=== PATIENT | female | born 1990 | race Caucasian/White ===

== ENCOUNTER 2020-05-16 19:58 | Emergency (ER) | payer BC, SELFPAY ==
[2020-05-16 19:59] VITALS: BP 126/83; PULSE 100; RESP 15; TEMP 36.3; O2SAT 99; BMI 31.2
--- NOTE | 2020-05-16 20:31 | ED.VIS.GEN ---
History of Present Illness Chief Complaint: Dental Informant: Patient Onset: Days Context: Gradual Onset Current Severity: Moderate Maximum Severity: Severe Narrative: Patient presents secondary to right-sided dental pain. She was seen by dentist yesterday. She was told she had a cavity between 2 teeth and an ulceration. She was started on amoxicillin and ibuprofen. Patient states today she feels like the right side of her face is swelling and going down into her neck. She reports having a bad infection in the past and wanted to avoid that. She has not noted chills but felt like she may be running a fever earlier. She has not had problems tolerating secretions. Past Medical History - Allergies and Home Meds Allergies/Adverse Reactions: Allergies No Known Allergies Allergy (Verified 05/16/20 20:03) Past Medical History: None Review of Systems General: Reports: Fever, Subjective Eyes: Denies: Visual changes - bilaterally ENT: Reports: Right ear pain, - - Right-sided dental pain Cardiovascular: Denies: Chest pain, Palpitations Respiratory: Denies: Dyspnea, Cough Gastrointestinal: Denies: Abdominal pain, Nausea, Vomiting, Diarrhea Genitourinary: Denies: Dysuria Musculoskeletal: Denies: Swelling, Extremity Pain Skin: Denies: Rash Neurological: Denies: Headache Hematologic: Denies: Easy bruising, Easy bleeding Allergy: Denies: Uticaria Physical Exam Vital Signs/Narrative: Vital Signs Temp Pulse Resp BP Pulse Ox 05/16/20 19:59 97.4 F L 100 15 126/83 H 99 Inital Vital Signs reviewed: Yes General: Well nourished, Well developed Head: Normocephalic, Atraumatic Eyes: Perrl, EOMI ENT: TM's clear, - - Tenderness along the right maxillary first and second premolars. Minimal gum edema. Posterior pharynx examination is unremarkable. Head of bed is elevated approximate 50 degrees and she is tolerating this without difficulty. She is a strong voice. No obvious facial edema or erythema is noted. Neck: - - Mild bilateral anterior cervical lymphadenopathy. No sign of Sobeida's angina on exam. Cardiovascular: Regular rate, Regular rhythm Respiratory: No distress, CTA bilaterally Abdomen: Soft, Nontender Extremities: Nontender Skin: Normal color Neurological: Alert, Oriented x3 Psychological: Normal affect Diagnostic/Tx/Re-eval - Medical Decision Making Antibiotics to be switched to clindamycin and should be given a few [place] for breakthrough pain. We discussed Sobeida's angina and what she should watch for. She is encouraged to return for worsening symptoms. ED Disposition - Plan for ED Patient: Disposition: Home or Assisted Living Diagnosis: Odontalgia Instructions: ED Tooth Pain Prescriptions: Clindamycin [Cleocin] 300 mg PO 4X/DAY #80 cap Transmission Status: Pending to [id number] Hydrocodone Bitart/Apap 5-325 [[place] 5MG-325MG] 1 tablet PO Q6H PRN PRN 3 Days #6 tablet PRN Reason: Pain Transmission Status: Received by [id number]
[2020-05-16] MEDS: HYDROcodone Bitartrate/Apap 5/325 Tablet PO (20:41)
[2020-05-16] MEDS: Clindamycin HCl 150 MG Capsule 300 MG PO (20:42)
[2020-05-16 21:05] VITALS: RESP 14
== END 2020-05-16 21:05 | disposition home or self-care (01) ==
LOC: ED 20:52
PROVIDERS: Emergency Provider Emergency Medicine
DX: K08.89 Other specified disorders of teeth and supporting structures (principal)
CPT/HCPCS: 99283

== ENCOUNTER → 2022-09-12 | Outpatient (CLI) | payer OTHER, SELFPAY ==
[2022-09-12 10:39] LABS: Vitamin D,25 Hydroxy 30.9 ng/mL
[2022-09-12 10:44] LABS: Anion Gap 6 (5-15); BUN 7 mg/dL (7-18); BUN/Creat Ratio 11.8 RATIO (10-20); Calcium,Total 9.1 mg/dL (8.5-10.1); Chloride 106 mmol/L (98-107); Cholesterol 175 mg/dL (200); Creatinine, Serum 0.59 mg/dL (0.55-1.02); EST Glomerular Filtration Rate 126 mL/min (>60); Est Glom Filt Rate - Afr Amer 153 mL/min (>60); Free T3 3.1 pg/mL (2.18-3.98); Glucose 84 mg/dL (74-106); High Density Lipoprotein 72 mg/dL; Potassium 3.8 mmol/L (3.5-5.1); Sodium Level 139 mmol/L (136-145); T4 Free Direct 0.97 ng/dL (0.76-1.46); Thyroid Stim Hormone (TSH) 0.74 uIU/mL (0.358-3.74); Triglycerides 116 mg/dL; Very Low Density Lipoprotein 23 mg/dL (5-40)
== END | disposition home or self-care (01) ==
LOC: MFPLAB 09:02
PROVIDERS: Visit Provider Family Medicine
DX: Z00.00 Encounter for general adult medical examination without abnormal findings (principal); L65.9 Nonscarring hair loss, unspecified
CPT/HCPCS: 36415; 80048; 80061; 82306; 84439; 84443; 84481

== ENCOUNTER → 2023-06-28 | Outpatient (CLI) | payer OTHER, SELFPAY ==
[2023-06-28 15:10] LABS: Absolute Lymphocyte Count 2.28 X10^3/uL (0.83-4.51); Absolute Neutrophil Count 4.1 X10^3/uL (2.0-7.7); Basophil# 0.03 X10^3/uL; Basophil% 0.4 % (0-1); Eosinophil# 0.03 X10^3/uL; Eosinophils% 0.4 % (0-5); Hematocrit 39.3 % (37-47); Lymphocyte # 2.28 X10^3/ul (0.83-4.51); Lymphocyte % 32.7 % (19-41); Mean Corp Hgb Conc 33.1 g/dL (32-36); Mean Corpuscular Hgb 32.2 pg (27.0-32.0); Mean Corpuscular Volume 97.3 fL (81-99); Mean Platelet Vol. 9.9 fl (6.2-12.0); Monocyte# 0.51 X10^3/uL; Monocyte% 7.3 % (0-10); NRBC Flagged by Analyzer 0 % (0-5); Neutrophil % 58.9 % (47-70); Platelet Count 365 K/mm3 (150-450); RBC Distribution Width CV 12.2 % (11.6-14.6); RBC Distribution Width SD 44.2 fl (35.1-43.9); Red Blood Count 4.04 M/mm3 (4.2-5.4)
[2023-06-28 15:39] LABS: Vitamin B12 346 pg/mL (211-911); Vitamin D,25 Hydroxy 32.3 ng/mL
[2023-06-28 15:49] LABS: AST(SGOT) 14 U/L (15-37); Alanine Aminotransfer ALT/SGPT 20 U/L (13-56); Albumin, Serum 3.8 g/dL (3.2-5.0); Alkaline Phosphatase 77 U/L (45-117); Anion Gap 8 (5-15); BUN 7 mg/dL (7-18); BUN/Creat Ratio 10.9 RATIO (10-20); Calcium,Total 9.1 mg/dL (8.5-10.1); Chloride 105 mmol/L (98-107); Creatinine, Serum 0.64 mg/dL (0.55-1.02); EST Glomerular Filtration Rate 114 mL/min (>60); Est Glom Filt Rate - Afr Amer 138 mL/min (>60); Free T3 2.7 pg/mL (2.18-3.98); Globulin 3.9 g/dL (2.2-4.2); Glucose 84 mg/dL (74-106); Potassium 3.5 mmol/L (3.5-5.1); Protein, Total 7.7 g/dL (6.4-8.2); Sodium Level 138 mmol/L (136-145); T4 Free Direct 1.03 ng/dL (0.76-1.46); Thyroid Stim Hormone (TSH) 1.63 uIU/mL (0.358-3.74)
[2023-07-08 21:07] LABS: Anti-Thyroglobulin AB 4.5 IU/mL (0.0-0.9); Thyroglobulin RIA 33 ng/mL (.); Thyroid Peroxidase AB 262 IU/mL (0-34)
== END | disposition home or self-care (01) ==
PROVIDERS: PCP Family Medicine; Referring Provider Family Medicine; Visit Provider Family Medicine
DX: R53.83 Other fatigue (principal)
CPT/HCPCS: 36415; 80053; 82306; 82607; 83735; 84432; 84439; 84443; 84481; 85025; 86376; 86800

== ENCOUNTER → 2023-07-05 | Outpatient (CLI) | payer OTHER, SELFPAY ==
--- NOTE | 2023-07-05 13:56 | ECHOCS_ITS ---
Reason For Study: Palpitations Procedure This was a 2D Doppler, Color Flow transthoracic echocardiogram. Contrast injection was performed. Exam performed in department. Left Ventricle Normal left ventricle. The estimated ejection fraction is 55-60 %. Right Ventricle Normal right ventricle. Normal systolic function. Atria Normal left atrium. Normal right atrium. Mitral Valve The mitral valve is structurally normal. No prolapse or stenosis seen. Trivial mitral valve insufficiency. Tricuspid Valve Normal tricuspid valve. Trivial tricuspid valve insufficiency. Aortic Valve Trisinus/trileaflet aortic valve. Pulmonic Valve The pulmonic valve is not well visualized. Great Vessels Normal aortic root. Pericardium/Pleural No pericardial effusion. Medication Diluted definity 2ml given slow IV push to enhance endocardial definition. MMode/2D Measurements & Calculations LVIDd: 4.3 cm IVSd: 0.91 cm Ao root diam: 3.0 cm LVIDs: 2.9 cm LVPWd: 0.94 cm RVDd: 3.6 cm FS: 33.9 % LAV(MOD-bp): 32.6 ml LVAd ap4: 31.1 cm2 SV(MOD-sp4): 57.2 ml LAV(MOD-bp) Indexed: 17.0 ml/m2 LVLd ap4: 7.7 cm LAV(MOD-sp2): 34.6 ml EDV(MOD-sp4): 103.5 ml LAV(MOD-sp4): 28.0 ml EDV(sp4-el): 106.3 ml LVAs ap4: 19.0 cm2 LVLs ap4: 6.5 cm ESV(MOD-sp4): 46.3 ml ESV(sp4-el): 47.0 ml EF(MOD-sp4): 55.3 % EF(sp4-el): 55.8 % SV(sp4-el): 59.3 ml LA A4 area: 13.7 cm2 LA dimension(2D): 3.3 cm RA A4 area: 9.9 cm2 TAPSE: 2.3 cm Time Measurements MV dec time: 0.19 sec Doppler Measurements & Calculations MV E max willie: 83.1 cm/sec Lat Peak E' Willie: 17.3 cm/sec Med Peak E' Willie: 8.3 cm/sec MV A max willie: 50.8 cm/sec E/E' lat: 4.8 E/E' med: 10.0 MV E/A: 1.6 MV dec slope: 445.6 cm/sec2 Ao V2 max: 147.1 cm/sec LV V1 max: 126.5 cm/sec Ao max P.7 mmHg LV V1 max P.4 mmHg Ao V2 mean: 103.8 cm/sec LV V1 mean P.9 mmHg Ao mean P.9 mmHg LV V1 mean: 96.2 cm/sec Ao V2 VTI: 31.1 cm LV V1 VTI: 26.4 cm AV (velocity ratio): 0.85 PA V2 max: 111.8 cm/sec TR max willie: 212.5 cm/sec TR max P.1 mmHg ECHO/Echo Complete W/ Contrast Interpretation Summary Normal LV systolic function. The estimated ejection fraction is 55-60 %. Trivial MR Trivial TR No prior echo study to compare. Ordering Physician: Sally Benson Referring Physician: Sally Benson Performed By: Vivian Musa, BAHMAN, RVT
== END | disposition home or self-care (01) ==
LOC: CVS 13:55
PROVIDERS: PCP Family Medicine; Referring Provider Family Medicine; Visit Provider Family Medicine
DX: R00.2 Palpitations (principal)
CPT/HCPCS: 93306; Q9957; A4216; C8929

== ENCOUNTER → 2023-08-15 | Outpatient (CLI) | payer OTHER, SELFPAY ==
[2023-08-15 15:43] LABS: Erythrocyte Sedimentation Rate 16 mm/hr (0-30)
[2023-08-15 16:57] LABS: CRP 9.39 mg/L (0.0-3.0); Rheumatoid Factor < 10.0 IU/mL (<15); T4 Free Direct 1.16 ng/dL (0.76-1.46); Thyroid Stim Hormone (TSH) 1.48 uIU/mL (0.358-3.74)
[2023-08-17 12:09] LABS: ANTINUCLEAR ANTIBODIES DIRECT Negative (Negative)
== END | disposition home or self-care (01) ==
LOC: MFPLAB 11:20
PROVIDERS: PCP Family Medicine; Visit Provider Family Medicine
DX: R53.83 Other fatigue (principal)
CPT/HCPCS: 36415; 82533; 84439; 84443; 84481; 85652; 86038; 86140; 86431

== ENCOUNTER → 2023-09-14 | Outpatient (CLI) | payer OTHER, SELFPAY ==
[2023-09-14 10:32] LABS: Vitamin B12 401 pg/mL (211-911); Vitamin D,25 Hydroxy 28.7 ng/mL
[2023-09-14 10:45] LABS: CRP < 2.90 mg/L (0.0-3.0); Ferritin 58 ng/mL (8-252); T4 Free Direct 0.95 ng/dL (0.76-1.46); Thyroid Stim Hormone (TSH) 2.29 uIU/mL (0.358-3.74)
== END | disposition home or self-care (01) ==
LOC: LAB 09:35
PROVIDERS: PCP Family Medicine; Referring Provider Family Medicine; Visit Provider Family Medicine
DX: R53.83 Other fatigue (principal); E53.8 Deficiency of other specified B group vitamins; E06.3 Autoimmune thyroiditis; R23.2 Flushing; R79.82 Elevated C-reactive protein (CRP)
CPT/HCPCS: 36415; 82306; 82607; 82728; 84439; 84443; 86140

== ENCOUNTER → 2023-09-20 | Outpatient (CLI) | payer OTHER, SELFPAY ==
--- NOTE | 2023-09-20 12:37 | US_ITS ---
STUDY: THYROID ULTRASOUND REASON FOR EXAM: Female, 33 years old. Autoimmune thyroid issues wtih fatigue, flushing, etc -- thyroiditis TECHNIQUE: Ultrasound evaluation of the thyroid was performed with real-time and static choi-scale imaging. COMPARISON: None. FINDINGS: RIGHT LOBE: The right lobe of the thyroid gland is enlarged measures 5.8 cm x 2.1 cm x 1.8 cm. There is a heterogeneous echotexture. There are no demonstrated solid, cystic or complex lesions. LEFT LOBE: The left lobe of the thyroid gland is enlarged and measures 5.3 cm x 1.9 cm x 1.8 cm. There is a heterogeneous echotexture. There are no demonstrated solid, cystic or complex lesions. ISTHMUS: The isthmus measures 4 mm. The regional lymph nodes are normal. US/Thyroid IMPRESSION: Thyroid enlargement. Electronically Signed: Sean Spangler MD at 15:18 EDT ,
== END | disposition home or self-care (01) ==
LOC: US 12:36
PROVIDERS: PCP Family Medicine; Referring Provider Family Medicine; Visit Provider Family Medicine
DX: E06.3 Autoimmune thyroiditis (principal)
CPT/HCPCS: 76536

== ENCOUNTER → 2025-01-30 | Outpatient (CLI) | payer OTHER, SELFPAY | END | disposition home or self-care (01) | LOC: MFPLAB 10:49 | PROVIDERS: PCP Family Medicine | DX: E06.3 Autoimmune thyroiditis (principal) | CPT/HCPCS: 36415; 83036; 84439; 84443 ==

== ENCOUNTER → 2025-02-13 | Outpatient (CLI) | payer OTHER, SELFPAY ==
[2025-02-13 12:40] LABS: Absolute Lymphocyte Count 1.73 X10^3/uL (0.83-4.51); Absolute Neutrophil Count 3.6 X10^3/uL (2.0-7.7); Basophil# 0.03 X10^3/uL; Basophil% 0.5 % (0-1); Eosinophil# 0.03 X10^3/uL; Eosinophils% 0.5 % (0-5); Hematocrit 38.1 % (37-47); Hemoglobin 12.7 g/dL (12.0-15.0); Lymphocyte # 1.73 X10^3/ul (0.83-4.51); Lymphocyte % 29.4 % (19-41); Mean Corp Hgb Conc 33.3 g/dL (32-36); Mean Corpuscular Hgb 32.2 pg (27.0-32.0); Mean Corpuscular Volume 96.7 fL (81-99); Monocyte# 0.48 X10^3/uL; Monocyte% 8.1 % (0-10); NRBC Flagged by Analyzer 0 % (0-5); Neutrophil # 3.61 X10^3/uL (2.7-7.7); Neutrophil % 61.3 % (47-70); Platelet Count 367 K/mm3 (150-450); RBC Distribution Width CV 12.3 % (11.6-14.6); RBC Distribution Width SD 43.9 fl (35.1-43.9); Red Blood Count 3.94 M/mm3 (4.2-5.4); White Blood Count 5.9 K/mm3 (4.4-11.0)
[2025-02-13 19:54] LABS: ALB/GLOB Ratio 1.3 RATIO (0.9-2.4); AST(SGOT) 16 U/L (<=31); Alanine Aminotransfer ALT/SGPT 12 U/L (<=34); Alkaline Phosphatase 76 U/L (35-104); Anion Gap 12 (5-15); BUN 7 mg/dL (4-19); BUN/Creat Ratio 11.3 RATIO (10-20); Carbon Dioxide 20.4 mmol/L (21.0-32.0); Chloride 105 mmol/L (98-108); Creatinine, Serum 0.62 mg/dL (0.70-1.20); EST Glomerular Filtration Rate 121 (>60); Globulin 3.1 g/dL (2.2-4.2); Glucose 75 mg/dL (70-99); Sodium Level 137 mmol/L (133-145); Total Bilirubin 0.46 mg/dL (0.00-1.30)
[2025-02-13 20:20] LABS: Cholesterol 164 mg/dL (<=200); High Density Lipoprotein 73 mg/dL; Low Density Lipoprotein Calc. 79 mg/dL; Triglycerides 62 mg/dL; Very Low Density Lipoprotein 12 mg/dL (5-40); cholesterol:hdl ratio screen 2.26
[2025-02-13 20:23] LABS: CRP < 3.00 mg/L (0.0-3.0); Vitamin B12 379 pg/mL (180-914); Vitamin D,25 Hydroxy 14.8 ng/mL (30-100)
[2025-02-18 14:08] LABS: Estrogen, Total, Serum 126 pg/mL (.)
== END | disposition home or self-care (01) ==
LOC: MFPLAB 10:24
PROVIDERS: PCP Family Medicine; Referring Provider Family Medicine; Visit Provider Family Medicine
DX: Z00.00 Encounter for general adult medical examination without abnormal findings (principal); E06.3 Autoimmune thyroiditis; R79.89 Other specified abnormal findings of blood chemistry; Z13.220 Encounter for screening for lipoid disorders; N92.6 Irregular menstruation, unspecified; R53.83 Other fatigue
CPT/HCPCS: 36415; 80053; 80061; 82306; 82533; 82607; 82672; 84439; 84443; 85025; 86140; 86900; 86901

== ENCOUNTER → 2025-03-13 | Outpatient (CLI) | payer OTHER, SELFPAY ==
[2025-03-13 13:00] LABS: Hemoglobin A1c 4.9 % (<=5.6)
[2025-03-13 13:12] LABS: Estradiol 41.5 pg/mL
[2025-03-14 04:07] LABS: PROGESTERONE 1.2 ng/mL (.)
[2025-03-15 17:07] LABS: PROLACTIN 18.1 ng/mL (4.8-33.4); Testosterone Free 1.1 pg/mL (0.0-4.2)
[2025-03-17 16:08] LABS: HPV APTIMA, High Risk Negative (Negative)
== END | disposition home or self-care (01) ==
PROVIDERS: PCP Family Medicine; Referring Provider Nurse Practitioner Women's Health; Visit Provider Nurse Practitioner Women's Health
DX: L68.0 Hirsutism (principal); L70.9 Acne, unspecified; E66.9 Obesity, unspecified; N94.6 Dysmenorrhea, unspecified; N93.9 Abnormal uterine and vaginal bleeding, unspecified; Z12.4 Encounter for screening for malignant neoplasm of cervix
CPT/HCPCS: 36415; 82627; 82670; 83036; 84144; 84146; 84402; 87624; 88175; 82626; G0145

== ENCOUNTER → 2025-03-20 | Outpatient (CLI) | payer OTHER, SELFPAY ==
--- NOTE | 2025-03-20 15:26 | US_ITS ---
PROCEDURE: PELVIC W/ TRANSVAGINAL 03/20/2025 REASON FOR EXAM: PAIN TECHNIQUE: Transabdominal pelvic ultrasound COMPARISON: None available FINDINGS: Transabdominal and transvaginal imaging The uterus measures 7.3 x 4.2 x 2.9 cm and appears within limits. 3 mm endometrial echo complex appears within limits. A nabothian cyst is seen. The left ovary measures 3.3 x 2.9 x 1.8 cm. The right ovary measures 2.8 x 2 x 2.1 cm. The ovaries appear within limits. No evidence of adnexal mass seen. No free fluid seen. Bladder volume 410 cc. US/Pelvic w/ Transvaginal IMPRESSION: The study appears within limits as above. Reading Location: [id number]
== END | disposition home or self-care (01) ==
LOC: US 15:23
PROVIDERS: PCP Family Medicine; Referring Provider Nurse Practitioner Women's Health; Visit Provider Nurse Practitioner Women's Health
DX: N94.6 Dysmenorrhea, unspecified (principal)
CPT/HCPCS: 76830; 76856

== ENCOUNTER → 2025-06-25 | Outpatient (CLI) | payer OTHER, SELFPAY ==
[2025-06-25 12:53] LABS: Vitamin D,25 Hydroxy 36.4 ng/mL (30-100)
== END | disposition home or self-care (01) ==
PROVIDERS: PCP Family Medicine; Referring Provider Nurse Practitioner Women's Health; Visit Provider Nurse Practitioner Women's Health
DX: E55.9 Vitamin D deficiency, unspecified (principal); E06.3 Autoimmune thyroiditis
CPT/HCPCS: 36415; 82306; 86376